=== PATIENT | female | born 1965 | race Caucasian/White ===

== ENCOUNTER 2021-04-19 00:10 | Inpatient (IN) | payer OTHER ==
[~2021-04-19] VITALS: Ht 162.6 cm; Wt 86.2 kg
[2021-04-19 01:00] LABS: RED BLOOD COUNT 4.84 M/UL (4.00-5.10); WHITE BLOOD COUNT 16.4 K/UL (4.5-11.0)
[2021-04-19 01:17] LABS: BUN/CREATININE RATIO 17 (0-10)
[2021-04-19] MEDS ORDERED: GABAPENTIN600 MG PO (02:09)
[2021-04-19] MEDS ORDERED: HYDROCODON-ACE1 EAC6 PO (02:10)
[2021-04-19] MEDS ORDERED: BUSPIRONE HCL7.5 MG PO (02:10)
[2021-04-19] MEDS ORDERED: PAROXETINE HCL40 MG PO (02:11)
[2021-04-19] MEDS ORDERED: CYMBALTA60 MG PO (02:12)
[2021-04-19] MEDS ORDERED: MIRTAZAPINE30 MG PO (02:12)
[2021-04-19] MEDS ORDERED: PHENERGAN 25 MG25 M1 PO (02:13)
[2021-04-19] MEDS ORDERED: ALPRAZOLAM0.5 MG PO (02:13)
[2021-04-20 04:48] LABS: HEMOGLOBIN 13.2 gm/dl (12.3-15.3); RED BLOOD COUNT 4.52 M/UL (4.00-5.10); WHITE BLOOD COUNT 17.4 K/UL (4.5-11.0)
[2021-04-20 05:07] LABS: BUN/CREATININE RATIO 13 (0-10)
[2021-04-21 03:20] LABS: HEMOGLOBIN 13.2 gm/dl (12.3-15.3); RED BLOOD COUNT 4.55 M/UL (4.00-5.10); WHITE BLOOD COUNT 14.7 K/UL (4.5-11.0)
[2021-04-21 04:49] LABS: BUN/CREATININE RATIO 20 (0-10)
[2021-04-21] MEDS ORDERED: ENOXAPARIN40 MG/0.4 SC (11:10)
[2021-04-21] MEDS ORDERED: LOPRESSOR 25 MG25 MG PO (11:16)
== END 2021-04-21 15:34 | disposition home or self-care (01) | DRG 481 ==
LOC: ER1 00:10 → CDU 02:17 → M/S 02:17
PROVIDERS: Family Medicine; Internal Medicine Infectious Disease; Orthopaedic Surgery; Physician Assistant Medical; ADMIT Internal Medicine
PROC: 0QS706Z Reposition Left Upper Femur with Intramedullary Internal Fixation Device, Open Approach (ICD-10-PCS; principal; 2021-04-19 13:51)
DX: S72.142A Displaced intertrochanteric fracture of left femur, initial encounter for closed fracture (principal); F11.20 Opioid dependence, uncomplicated; J96.11 Chronic respiratory failure with hypoxia; W01.0XXA Fall on same level from slipping, tripping and stumbling without subsequent striking against object, initial encounter; J44.9 Chronic obstructive pulmonary disease, unspecified; I10 Essential (primary) hypertension; F41.9 Anxiety disorder, unspecified; G89.29 Other chronic pain; D72.829 Elevated white blood cell count, unspecified; F32.9 Major depressive disorder, single episode, unspecified; M54.9 Dorsalgia, unspecified; G62.9 Polyneuropathy, unspecified; Z90.49 Acquired absence of other specified parts of digestive tract; Y93.89 Activity, other specified; Y92.89 Other specified places as the place of occurrence of the external cause; Z72.0 Tobacco use; Z98.51 Tubal ligation status; Z88.1 Allergy status to other antibiotic agents; Z88.2 Allergy status to sulfonamides; Z88.8 Allergy status to other drugs, medicaments and biological substances; Z82.49 Family history of ischemic heart disease and other diseases of the circulatory system; Z84.89 Family history of other specified conditions
CPT/HCPCS: 36415; 71045; 73502; 76000; 80048; 80053; 82550; 82553; 82962; 84484; 85025; 85027; 85610; 86850; 86900; 86901; 93005; 94640; 94664; 94760; 96374; 96376; 97116-GP-CQ; 97161; 97166; 97535; 99284; C1713; J0360; J0690; J1100; J1650; J2250; J2270; J2405; J2704; J2710; J3010; J7120; U0002

== ENCOUNTER → 2021-12-24 | Outpatient (CLI) | payer OTHER ==
[~2021-12-24] MED LIST: ALPRAZOLAM0.5 MG PO; ANORO ELLIPTA1 EACH INH; B-121000 MCG PO; BUSPIRONE HCL7.5 MG PO; CYMBALTA30 MG PO; CYMBALTA60 MG PO; ENOXAPARIN40 MG/0.4 SC; GABAPENTIN600 MG PO; HYDROCODON-ACE1 EAC6 PO; LEVOFLOXACIN500 MG PO; LEVOTHYROXINE100 MCG PO; LOPRESSOR 25 MG25 MG PO; MEGACE 400400 MG/10 PO; MIRTAZAPINE30 MG PO; PAROXETINE HCL40 MG PO; PHENERGAN 25 MG25 M1 PO; PROAIR HFA8.5 GM INH; VISTARIL 25 MG25 MG PO; VITAMIN D350 MC3 PO; ZOFRAN 4 MG TAB4 MG PO
[2021-12-24 14:34] LABS: BUN/CREATININE RATIO 11 (0-10)
== END ==
LOC: LAB 13:24
PROVIDERS: Orthopaedic Surgery
DX: Z01.812 Encounter for preprocedural laboratory examination (principal); T84.89XA Other specified complication of internal orthopedic prosthetic devices, implants and grafts, initial encounter
CPT/HCPCS: 80048; 86850; 86900; 86901; 86920

== ENCOUNTER 2021-12-25 07:08 | Inpatient (IN) | payer OTHER ==
[~2021-12-25] VITALS: Ht 162.6 cm; Wt 68.9 kg
[~2021-12-25 07:08] MED LIST changes: -CYMBALTA30 MG PO; -LEVOFLOXACIN500 MG PO; -LEVOTHYROXINE100 MCG PO; -MEGACE 400400 MG/10 PO; -VISTARIL 25 MG25 MG PO; -ZOFRAN 4 MG TAB4 MG PO
[2021-12-26 06:20] LABS: HEMOGLOBIN 10.2 gm/dl (12.3-15.3); RED BLOOD COUNT 3.51 M/UL (4.00-5.10); WHITE BLOOD COUNT 12.6 K/UL (4.5-11.0)
[2021-12-26 06:40] LABS: BUN/CREATININE RATIO 9 (0-10)
[2021-12-26] MEDS ORDERED: ZOFRAN 4 MG TAB4 MG PO (12:46)
[2021-12-26] MEDS ORDERED: CYMBALTA30 MG PO (12:48)
[2021-12-26] MEDS ORDERED: CYMBALTA60 MG PO (12:48)
[2021-12-26] MEDS ORDERED: MEGACE 400400 MG/10 PO (12:52)
[2021-12-26] MEDS ORDERED: VISTARIL 25 MG25 MG PO (15:06)
[2021-12-26] MEDS ORDERED: LEVOTHYROXINE100 MCG PO (15:12)
--- NOTE | 2021-12-26 19:46 | NUR ---
SPOKE WITH DR. DE LA ROSA REGARDING PT CONDITION. PT DESAT TO 83 WHILE LAYING IN BED AND SPIKED A TEMPERATURE OVER 101F. OXYGEN 2 LITERS NC PLACED ON THE PT. PT RESTING IN BED AND SATING [address] DE LA ROSA, IF PT DOES WELL WITH PHYSICAL THERAPY AND DOES NOT DESAT, THEN PT MAY DISCHARGED HOME. PHYSCIAL THERAPY NOTED THAT PT'S OXYGEN DROPPED TO 78% AT THE END OF HER AMBULATION. INSTRUCTED THE PT THAT PER DR. DE LA ROSA SINCE HER OXYGEN DROPPED SHE SHOULD STAY ANOTHER NIGHT FOR MONITORING PURPOSES. PT IS NOW RESTING IN BED WITH OXYGEN STAYING AROUND LOW 90'S TO MID 90'S ON 2L LAYING IN BED. WILL CONTINUE TO MONITOR.
[2021-12-27 08:24] LABS: HEMOGLOBIN 9.6 gm/dl (12.3-15.3); RED BLOOD COUNT 3.28 M/UL (4.00-5.10); WHITE BLOOD COUNT 14.2 K/UL (4.5-11.0)
[2021-12-27 08:48] LABS: BUN/CREATININE RATIO 12 (0-10)
[2021-12-27 12:29] LABS: BORDETELLA PARAPERTUSSIS Not Detected (Not Detectd); BORDETELLA PERTUSSIS Not Detected (Not Detectd); CHLAMYDIA PNEUMONIAE Not Detected (Not Detectd); CORONAVIRUS HKU1 Not Detected (Not Detectd); CORONAVIRUS NL63 Not Detected (Not Detectd); CORONAVIRUS OC43 Not Detected (Not Detectd); CORONOAVIRUS 229E Not Detected (Not Detectd); HUMAN METAPNEUMOVIRUS Not Detected (Not Detectd); HUMAN RHINOVIRUS/ENTEROVIRUS Not Detected (Not Detectd); INFLUENZA A Not Detected (Not Detectd); INFLUENZA B Not Detected (Not Detectd); MYCOPLASMA PNEUMONIAE Not Detected (Not Detectd); PARAINFLUENZA VIRUS 1 Not Detected (Not Detectd); PARAINFLUENZA VIRUS 2 Not Detected (Not Detectd); PARAINFLUENZA VIRUS 3 Not Detected (Not Detectd); PARAINFLUENZA VIRUS 4 Not Detected (Not Detectd); RESPIRATORY SYNCYTIAL VIRUS Not Detected (Not Detectd)
[2021-12-27 13:36] LABS: SARS-CoV-2 NOT DETECTED (Not Detectd)
[2021-12-28 05:54] LABS: HEMOGLOBIN 8.8 gm/dl (12.3-15.3); RED BLOOD COUNT 3.04 M/UL (4.00-5.10)
[2021-12-28 06:22] LABS: BUN/CREATININE RATIO 15 (0-10)
[2021-12-28] MEDS ORDERED: LEVOFLOXACIN500 MG PO (09:40)
--- NOTE | 2021-12-28 10:54 | NUR ---
DISCHARGE VITALS TEMP 97.8, RR 20, O2 98%, BP 124/73, HR92
--- NOTE | 2021-12-28 12:23 | NUR ---
PTS RA STAT IS 82%
[2021-12-30 16:14] LABS: ORGANISM ID Not indicated. (.); SPECIMEN SOURCE Urine (.); STREPTOCOCCUS PNEUMONIAE AG Negative (Negative)
== END 2021-12-28 13:53 | disposition home health service (06) | DRG 470 ==
LOC: OR 07:08 → EDSTATUS 07:30 → OR 07:30 → M/S 18:34 → OR 12-26 07:08 → M/S 12-28 13:53
PROVIDERS: ADMIT Orthopaedic Surgery
PROC: 0QP704Z Removal of Internal Fixation Device from Left Upper Femur, Open Approach (ICD-10-PCS; principal; 2021-12-25 07:30)
PROC: 0SRB03Z Replacement of Left Hip Joint with Ceramic Synthetic Substitute, Open Approach (ICD-10-PCS; principal; 2021-12-25 07:30)
DX: M16.12 Unilateral primary osteoarthritis, left hip (principal); S72.092K Other fracture of head and neck of left femur, subsequent encounter for closed fracture with nonunion; Z20.822 Contact with and (suspected) exposure to COVID-19; J96.11 Chronic respiratory failure with hypoxia; F41.9 Anxiety disorder, unspecified; J44.9 Chronic obstructive pulmonary disease, unspecified; G43.909 Migraine, unspecified, not intractable, without status migrainosus; F43.10 Post-traumatic stress disorder, unspecified; K21.9 Gastro-esophageal reflux disease without esophagitis; F32.A Depression, unspecified; E03.9 Hypothyroidism, unspecified; N39.3 Stress incontinence (female) (male); E78.5 Hyperlipidemia, unspecified; Z86.718 Personal history of other venous thrombosis and embolism; Z79.01 Long term (current) use of anticoagulants; Z90.49 Acquired absence of other specified parts of digestive tract; Z88.1 Allergy status to other antibiotic agents; Z88.5 Allergy status to narcotic agent; Z88.0 Allergy status to penicillin; Z88.2 Allergy status to sulfonamides; Z98.51 Tubal ligation status; Z79.82 Long term (current) use of aspirin; Z99.81 Dependence on supplemental oxygen
CPT/HCPCS: 36415; 71045; 72170; 80048; 81001; 83735; 83880; 85025; 85610; 86140; 87040; 87086; 87278; 87633; 87899; 94640; 94664; 94760; 97110-GP-CQ; 97116-GP-CQ; 97162; 97165; 97530; 97530-GP-CQ; 97535; C1776; J0171; J0735; J1170; J1885; J2001; J2185; J2250; J2270; J2405; J2550; J2704; J2795; J3010; J3370; J7050; J7120